=== PATIENT | male | born 1965 | race Caucasian/White ===

== ENCOUNTER 2018-08-01 18:39 | Emergency (ER) | payer OTHER | END 2018-08-01 20:29 | LOC: E/R 18:39 | DX: S00.81XA Abrasion of other part of head, initial encounter (principal); R40.2142 Coma scale, eyes open, spontaneous, at arrival to emergency department; R40.2362 Coma scale, best motor response, obeys commands, at arrival to emergency department; R40.2232 Coma scale, best verbal response, inappropriate words, at arrival to emergency department; R51 Headache; X58.XXXA Exposure to other specified factors, initial encounter; Y92.9 Unspecified place or not applicable | CPT/HCPCS: 70450; 99284-25 ==